=== PATIENT | male | born 1995 | race Caucasian/White ===

== ENCOUNTER 2024-08-14 15:31 | Emergency (ER) | payer BC, SELFPAY ==
[2024-08-14 15:33] VITALS: BP 140/82; PULSE 104; RESP 16; TEMP 36.7; O2SAT 97; BMI 28.8
--- NOTE | 2024-08-14 16:45 | CT_ITS ---
PROCEDURE: SPINE CERVICAL WITHOUT CONTRAS REASON FOR EXAM: INJURY TECHNIQUE: Cervical spine CT without contrast. COMPARISON: None. FINDINGS: Alignment: Normal Vertebrae: No acute fracture Soft Tissues: No large prevertebral hematoma CT/Spine Cervical without Contras IMPRESSION: No acute injury seen within the cervical spine. One or more dose reduction techniques were used (e.g., Automated exposure contr ol, adjustment of the mA and/or kV according to patient size, use of iterative reconstruction technique). Reading Location: [id number]
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
[2024-08-14] MEDS: Acetaminophen 500 MG Tablet 1000 MG PO (17:37)
== END 2024-08-14 18:03 | disposition home or self-care (01) ==
PROVIDERS: Emergency Provider Emergency Medicine; Referring Provider Emergency Medicine; Visit Provider Emergency Medicine
DX: S06.0X0A Concussion without loss of consciousness, initial encounter (principal); S16.1XXA Strain of muscle, fascia and tendon at neck level, initial encounter; V49.40XA Driver injured in collision with unspecified motor vehicles in traffic accident, initial encounter
CPT/HCPCS: 70450; 72125; 99284